=== PATIENT | female | born 1960 | race Caucasian/White ===

== ENCOUNTER 2018-10-30 20:17 | Emergency (ER) | payer MEDICAID ==
[~2018-10-30 20:17] MED LIST: ASPI81TA31 PO; HYDR-3326 PO; OMEP20CA10 PO
--- NOTE | 2018-10-30 21:39 | NUR ---
patient left without being triaged or seen by ERMD
== END 2018-10-30 21:40 | disposition left against medical advice (07) ==
LOC: ER 20:17
DX: Z53.21 Procedure and treatment not carried out due to patient leaving prior to being seen by health care provider (principal)

== ENCOUNTER 2019-02-18 14:08 | Emergency (ER) | payer MEDICAID ==
[~2019-02-18] VITALS: Ht 180.3 cm; Wt 81.6 kg
--- NOTE | 2019-02-18 14:35 | NUR ---
COLLETTE ERVIN AT BEDSIDE FOR MSE.
[2019-02-18] MEDS ORDERED: SIMV20TA6 PO (14:51)
[2019-02-18] MEDS ORDERED: BISO5TAB2 PO (14:51)
[2019-02-18] MEDS ORDERED: PROP150T9 PO (14:51)
[2019-02-18] MEDS ORDERED: METF-440 PO (14:51)
[2019-02-18] MEDS ORDERED: BENA10TA9 PO (14:51)
[2019-02-18 14:53] LABS: BASOPHILS # (AUTO) 0.1 K/uL (0.0-8.0); BASOPHILS % (AUTO) 0.8 % (0.0-2.0); EOSINOPHILS # (AUTO) 0.2 K/uL (0.0-0.7); EOSINOPHILS % (AUTO) 1.7 % (0.0-7.0); HEMATOCRIT 39.6 % (31.2-41.9); HEMOGLOBIN 12.7 g/dL (10.9-14.3); LYMPHOCYTES # (AUTO) 2.1 K/uL (20.0-40.0); LYMPHOCYTES % (AUTO) 19.9 % (20.5-51.5); MEAN CORPUSCULAR HEMOGLOBIN 27.7 uug (24.7-32.8); MEAN CORPUSCULAR HGB CONC 32 g/dL (32.3-35.6); MEAN CORPUSCULAR VOLUME 86.1 fL (75.5-95.3); MONOCYTES # (AUTO) 0.6 K/uL (2.0-10.0); MONOCYTES % (AUTO) 6.1 % (0.0-11.0); NEUTROPHILS # (AUTO) 7.4 K/uL (1.8-8.9); NEUTROPHILS % (AUTO) 71.5 % (38.5-71.5); PLATELET COUNT (AUTO) 259 K/uL (179-408); WHITE BLOOD COUNT (AUTO) 10.4 K/uL (3.8-11.8)
[2019-02-18 14:59] LABS: CREATININE 0.7 mg/dL (0.6-1.3)
[2019-02-18 15:03] LABS: *BILIRUBIN,URIN NEGATIVE (NEGATIVE); *BLOOD, URINE NEGATIVE (NEGATIVE); *CLARITY,URINE SLIGHTLY CLOUDY (CLEAR); *COLOR,URINE YELLOW (YELLOW); *KETONES,URINE NEGATIVE (NEGATIVE); *UROBILINOGEN,URINE 0.2 E.U./dl (NORMAL); LEUKOCYTE ESTERASE ,URINE 1+ (NEGATIVE); NITRITE, URINE NEGATIVE (NEGATIVE); PH,URINE 5.5 (5.0-8.0); UGLUCOSE NEGATIVE (NEGATIVE)
[2019-02-18 15:05] LABS: BILIRUBIN,DIRECT 0.1 mg/dL (0.0-0.2); BILIRUBIN,TOTAL 0.4 mg/dL (0.2-1.0); TOTAL PROTEIN, SERUM 8.3 g/dL (6.4-8.2)
[2019-02-18 15:18] LABS: BACTERIA,URINE NONE SEEN /HPF (NONE SEEN); RBC,URINE NONE SEEN /HPF (0-3)
[2019-02-18 15:19] LABS: SQUAMOUS EPITHELIAL CELL,UR FEW /HPF (NONE SEEN)
--- NOTE | 2019-02-18 15:34 | NUR ---
Patient discharged to home in stable conditon. Written and verbal after care instructions given. Patient verbalizes understanding of instructions. ALL BELONGINGS W/ PT. PT SELF-AMBULATED WO DIFFICULTY.
[2019-02-18 15:35] VITALS: BP 115/68
== END 2019-02-18 15:35 | disposition home or self-care (01) ==
LOC: ER 14:09
DX: R42 Dizziness and giddiness (principal); R53.1 Weakness; R10.9 Unspecified abdominal pain; Z79.82 Long term (current) use of aspirin; Z79.899 Other long term (current) drug therapy
CPT/HCPCS: 36415; 70030-TC; 83690; 84443; 85025; 85610; 87086; 93005; A4663

== ENCOUNTER 2019-04-28 16:28 | Emergency (ER) | payer MEDICAID ==
[~2019-04-28] VITALS: Ht 180.3 cm; Wt 81.6 kg
[~2019-04-28 16:28] MED LIST changes: +BENA10TA11 PO; +BISO5TAB2 PO; +METF-440 PO; -OMEP20CA10 PO; +OMEP20CA11 PO; +PROP150T9 PO; +SIMV20TA6 PO
[2019-04-28] MEDS ORDERED: DEXAMETHASONE SOD PHOSPHATE 4 MG INJ IM ONE (17:00)
[2019-04-28] MEDS ORDERED: DEXAMETHASONE SOD PHOSPHATE 10 MG INJ ONE (17:03)
--- NOTE | 2019-04-28 17:05 | NUR ---
Patient discharged to home in stable conditon. Written and verbal after care instructions given. Patient verbalizes understanding of instructions.
== END 2019-04-28 17:06 | disposition home or self-care (01) ==
LOC: ER 16:28
DX: L25.1 Unspecified contact dermatitis due to drugs in contact with skin (principal); T49.0X5A Adverse effect of local antifungal, anti-infective and anti-inflammatory drugs, initial encounter; Z88.1 Allergy status to other antibiotic agents; Z88.8 Allergy status to other drugs, medicaments and biological substances; Z79.82 Long term (current) use of aspirin; Z79.899 Other long term (current) drug therapy; Y92.89 Other specified places as the place of occurrence of the external cause
CPT/HCPCS: 96372; 99283; J1100; A4663

== ENCOUNTER 2021-03-06 05:23 | Emergency (ER) | payer MEDICAID ==
[~2021-03-06] VITALS: Ht 180.3 cm; Wt 88.0 kg
[~2021-03-06 05:23] MED LIST changes: -BENA10TA11 PO; +BENA10TA74 PO; -BISO5TAB2 PO; +BISO5TAB20 PO; -OMEP20CA11 PO; +OMEP20CA15 PO; +PROP150T3 PO; -PROP150T9 PO; +SIMV-46 PO; -SIMV20TA6 PO
[2021-03-06] MEDS ORDERED: POTASSIUM CHLORIDE 20 MEQ TAB.PRT.SR PO ONE (05:45)
[2021-03-06] MEDS ORDERED: DILTIAZEM HCL 25 MG IV IV ONE ×4 (05:45→06:45)
[2021-03-06] MEDS ORDERED: ASPIRIN 81 MG TAB.CHEW PO ONE (05:45)
[2021-03-06] MEDS ORDERED: MAGNESIUM SULFATE 2 GM in IV DEXTROSE 5% 100 ML IV ONE (05:45)
[2021-03-06] MEDS ORDERED: ASPIRIN 81 MG TAB.CHEW ONE (05:55)
[2021-03-06] MEDS ORDERED: POTASSIUM CHLORIDE 20 MEQ TAB.PRT.SR ONE ×2 (05:55→06:02)
[2021-03-06] MEDS ORDERED: MAGNESIUM SULFATE/D5W 100 ML ONE ×2 (05:55→06:23)
[2021-03-06] MEDS ORDERED: DILTIAZEM HCL 25 MG IV ONE ×4 (05:55→06:51)
[2021-03-06 06:14] LABS: HEMATOCRIT 38.4 % (31.2-41.9); MEAN CORPUSCULAR HEMOGLOBIN 28.7 uug (24.7-32.8); MEAN CORPUSCULAR VOLUME 85.4 fL (75.5-95.3); PLATELET COUNT (AUTO) 251 K/uL (179-408)
[2021-03-06 06:19] LABS: CREATININE 0.8 mg/dL (0.6-1.3); POTASSIUM 3.6 mmol/L (3.5-5.1)
[2021-03-06] MEDS ORDERED: FENTANYL CITRATE 100 MCG/2 ML AMPUL IV ONE (06:45)
[2021-03-06] MEDS ORDERED: PROPOFOL 200 MG/20 ML BOTTLE IV ONE (06:45)
[2021-03-06] MEDS ORDERED: FENTANYL CITRATE 100 MCG/2 ML AMPUL ONE (06:51)
[2021-03-06] MEDS ORDERED: PROPOFOL 200 MG/20 ML BOTTLE ONE (06:51)
--- NOTE | 2021-03-06 06:58 | NUR ---
Note undone in EDM - 03/06/21 at 0710 by MARIBELL Synchronized cardioversion performed. consent signed by patient. Dr. Arellano, 2RNs, RT at bedside. fentanyl 100mcg IV administered at 0548 propofol 100mg IV given by MD. cardioverted patient 150 joules. EKG obtained given to Dr. Arellano, converted to normal sinus rhythm at a rate of 64bpm. 0658 - patient is awake, alert, oriented x 4. Vitals stable.
--- NOTE | 2021-03-06 07:10 | NUR ---
Synchronized cardioversion performed. consent signed by patient. Dr. Arellano, 2RNs, RT at bedside. fentanyl 100mcg IV administered at 0648 propofol 100mg IV given by MD at 0650. cardioverted patient 150 joules at 0652. EKG obtained given to Dr. Arellano, converted to normal sinus rhythm at a rate of 64bpm. 0658 - patient is awake, alert, oriented x 4. Vitals stable.
--- NOTE | 2021-03-06 07:23 | NUR ---
PT IS RESTING IN BED CAMFORTABLY. NO S/S OF ACUTE DISTRES AT THIS TIME. PT's SON AT THE BEDSIDE. CONTINUE TO MONITOR THE PT.
--- NOTE | 2021-03-06 08:00 | NUR ---
PT WAS D/C'd TO HOME. D/C INSTRUCTIONS GIVEN TO THE PT BY DR JALLOH. GAIT IS STABLE. PT IS A/O x 4 TIMES. PT DENIES PAIN, NO SOB , NO N/V, NO DIZZINESS. PT LEFT [facility] WITH HER SON BY TAXI.
[2021-03-06 08:02] VITALS: BP 112/66
[2021-03-06] MEDS ORDERED: APIX5TAB4 PO (16:29)
== END 2021-03-06 08:03 | disposition home or self-care (01) ==
LOC: ER 05:24
DX: I48.91 Unspecified atrial fibrillation (principal); R94.31 Abnormal electrocardiogram [ECG] [EKG]; Z87.891 Personal history of nicotine dependence; Z88.1 Allergy status to other antibiotic agents; Z86.14 Personal history of Methicillin resistant Staphylococcus aureus infection; E11.9 Type 2 diabetes mellitus without complications; Z79.82 Long term (current) use of aspirin; Z79.84 Long term (current) use of oral hypoglycemic drugs
CPT/HCPCS: 36415; 71045; 80048; 84443; 84484; 85025; 85379; 85730; 92960; 93005; 99285; J3010; J3475 ×2; J3490 ×4; 70030-TC; A4663; G0500

== ENCOUNTER 2021-03-06 14:38 | Emergency (ER) | payer MEDICAID ==
[~2021-03-06] VITALS: Ht 180.3 cm; Wt 88.0 kg
--- NOTE | 2021-03-06 15:00 | NUR ---
[email or web address], medical screening exam in progress
[2021-03-06 15:40] LABS: HEMATOCRIT 36.6 % (31.2-41.9); MEAN CORPUSCULAR HEMOGLOBIN 28.2 uug (24.7-32.8); MEAN CORPUSCULAR VOLUME 85.1 fL (75.5-95.3); PLATELET COUNT (AUTO) 276 K/uL (179-408)
[2021-03-06 15:46] LABS: CREATININE 0.6 mg/dL (0.6-1.3)
[2021-03-06 15:51] LABS: BILIRUBIN,TOTAL 0.3 mg/dL (0.2-1.0); TOTAL PROTEIN, SERUM 7.1 g/dL (6.4-8.2)
[2021-03-06] MEDS ORDERED: APIX5TAB4 PO (16:29)
--- NOTE | 2021-03-06 16:38 | NUR ---
PT WAS D/C'd TO HOME , D/C INSTRUCTIONS GIVEN TO THE PT BY DR FOY.
[2021-03-06 16:47] VITALS: BP 125/71
== END 2021-03-06 16:48 | disposition home or self-care (01) ==
LOC: ER 14:38
DX: R00.2 Palpitations (principal); I48.91 Unspecified atrial fibrillation; Z79.01 Long term (current) use of anticoagulants; E11.9 Type 2 diabetes mellitus without complications; Z86.14 Personal history of Methicillin resistant Staphylococcus aureus infection; Z87.19 Personal history of other diseases of the digestive system; Z79.899 Other long term (current) drug therapy; Z79.82 Long term (current) use of aspirin; Z79.84 Long term (current) use of oral hypoglycemic drugs; Z87.891 Personal history of nicotine dependence; Z88.1 Allergy status to other antibiotic agents
CPT/HCPCS: 36415; 70030-TC; 83735; 85025; 93005; A4663